=== PATIENT | female | born 1955 | race Hispanic/Latino ===

== ENCOUNTER 2018-02-13 06:19 | Observation (INO) | payer BC ==
[~2018-02-13] VITALS: Ht 152.4 cm; Wt 54.0 kg
[2018-02-13] MEDS ORDERED: ONDANSETRON HCL INJ 2 MG/ML VIAL IV STA (07:05)
[2018-02-13] MEDS ORDERED: SODIUM CHLORIDE 0.9% 1000ML 1,000 ML IV STA (07:05)
[2018-02-13] MEDS ORDERED: HYDRALAZINE HCL 20 MG/ML VIAL IV STA (07:08)
[2018-02-13 07:14] LABS: BASOPHILS % 0.3 % (0.0-1.0); EOSINOPHILS # (AUTO) 0.1 (0.0-0.4); EOSINOPHILS % 2.4 % (0.0-6.0); LYMPHOCYTES # (AUTO) 1.1 (1.0-3.2); LYMPHOCYTES % 36.2 % (18.0-39.1); MEAN CORPUSCULAR HEMOGLOBIN 30.1 pg (28-32); MEAN CORPUSCULAR HGB CONC 33.8 g/dL (31-35); MEAN CORPUSCULAR VOLUME 89.3 fL (81-99); MONOCYTES # (AUTO) 0.2 (0.2-0.8); MONOCYTES % 5.1 % (4.4-11.3); NEUTROPHILS # (AUTO) 1.6 (2.1-6.9); NEUTROPHILS % 55.7 % (38.7-80.0); PLATELET COUNT 118 x10e3/uL (140-360); RED CELL DISTRIBUTION WIDTH 11.7 % (11.7-14.4)
[2018-02-13 07:20] LABS: HEMATOCRIT 60.7 % (34.2-44.1); HEMOGLOBIN 20.5 g/dL (12.0-16.0)
[2018-02-13 07:28] LABS: ALANINE AMINOTRANSFERASE 40 IU/L (0-55); ALBUMIN 4.1 g/dL (3.5-5.0); ALBUMIN/GLOBULIN RATIO 1.1 (0.8-2.0); ALKALINE PHOSPHATASE 74 IU/L (40-150); ANION GAP 14.6 mmol/L (8-16); BLOOD UREA NITROGEN 11 mg/dL (7-26); BUN/CREATININE RATIO 17 (6-25); CALCIUM 9.3 mg/dL (8.4-10.2); CARBON DIOXIDE 22 mmol/L (22-29); CHLORIDE 107 mmol/L (98-107); CREATININE, SERUM 0.65 mg/dL (0.57-1.11); EST GLOMERULAR FILTRATION RATE > 60 ML/MIN (60-); GLUCOSE 105 mg/dL (74-118); POTASSIUM 3.6 mmol/L (3.5-5.1); SODIUM 140 mmol/L (136-145)
[2018-02-13] MEDS: SODIUM CHLORIDE 0.9% 1000ML 1,000 ML IV SCH ×3 (07:56→11:13)
[2018-02-13] MEDS ORDERED: ONDANSETRON HCL INJ 2 MG/ML VIAL IV PRN (08:00)
[2018-02-13] MEDS: SODIUM CHLORIDE 0.9% 1000ML 1,000 ML IV ONE ×2 (08:01→08:14)
--- NOTE | 2018-02-13 08:07 | Diagnostic Imaging Report ---
History: Headache Comparison studies: Head CT on 05/21/2015 Technique: Axial images were obtained from the skull base to the vertex. Coronal and sagittal reconstructions obtained from the axial data. Findings: Scalp/skull: No abnormalities. No fractures, blastic or lytic lesions. Extra-axial spaces: No masses. No fluid collections. Brain sulci: Appropriate for age. Ventricles: Normal in size and configuration. No hydrocephalus. Parenchyma: The elongated cerebellar tonsils, which project inferiorly 7 mm beyond the margin of the foramen magnum, efface the CSF at the craniocervical junction. No masses, hemorrhage, acute or chronic cortical vascular insults. Sellar/suprasellar region: No abnormalities Craniocervical junction: Patent foramen magnum. No Chiari one malformation. IMPRESSION: 1. No acute abnormalities. 2. No changes when compared to the head CT on 928 3. Unchanged Chiari I malformation. Signed by: Dr. Kyle Keita M.D. on 02/13/2018 8:04 AM
[2018-02-13] MEDS ORDERED: HYDRALAZINE HCL 20 MG/ML VIAL IV PRN (08:15)
[2018-02-13 08:52] VITALS: BP 166/84
[2018-02-13 09:11] VITALS: BP 166/84
[2018-02-13 11:53] VITALS: BP 179/93
[2018-02-13] MEDS ORDERED: MECLIZINE HCL 12.5 MG TAB PO PRN (13:45)
[2018-02-13] MEDS ORDERED: CLONIDINE HCL 0.1 MG TAB PO PRN (13:45)
[2018-02-13] MEDS ORDERED: LISINOPRIL 10 MG TAB PO SCH (14:00)
[2018-02-13 15:24] LABS: BASOPHILS % 0.1 % (0.0-1.0); EOSINOPHILS % 0.1 % (0.0-6.0); HEMATOCRIT 40.8 % (34.2-44.1); LYMPHOCYTES # (AUTO) 1.2 (1.0-3.2); LYMPHOCYTES % 11.7 % (18.0-39.1); MEAN CORPUSCULAR HEMOGLOBIN 30.3 pg (28-32); MEAN CORPUSCULAR HGB CONC 34.6 g/dL (31-35); MEAN CORPUSCULAR VOLUME 87.7 fL (81-99); MONOCYTES # (AUTO) 0.3 (0.2-0.8); MONOCYTES % 2.8 % (4.4-11.3); NEUTROPHILS # (AUTO) 8.8 (2.1-6.9); PLATELET COUNT 271 x10e3/uL (140-360); RED BLOOD COUNT 4.65 x10e6/uL (3.6-5.1); RED CELL DISTRIBUTION WIDTH 11.8 % (11.7-14.4)
[2018-02-13 15:25] LABS: HEMOGLOBIN 14.1 g/dL (12.0-16.0)
[2018-02-13 16:36] VITALS: BP 145/85
[2018-02-13] MEDS ORDERED: MECLIZINE HCL 12.5 MG TAB PO SCH (21:00)
== END 2018-02-13 19:04 | disposition home or self-care (01) ==
LOC: ER 06:19 → ERHOLD 07:56 → IMCU 08:26
PROVIDERS: ADMIT Internal Medicine; ATTEND Internal Medicine
DX: R42 Dizziness and giddiness (principal); G93.5 Compression of brain; Z87.891 Personal history of nicotine dependence; D75.1 Secondary polycythemia; I10 Essential (primary) hypertension; D72.819 Decreased white blood cell count, unspecified; E86.0 Dehydration; I16.9 Hypertensive crisis, unspecified
CPT/HCPCS: 36415; 70450; 80053; 80320; 83735; 85025; 93005; 99284; G0378; J0360; J2405; J7030